=== PATIENT | female | born 1960 | race Caucasian/White ===

== ENCOUNTER → 2018-11-15 | Outpatient (CLI) | payer OTHER | END | disposition home or self-care (01) | LOC: CFH 08:13 | PROVIDERS: ATTEND Specialist | DX: J34.2 Deviated nasal septum (principal); J32.8 Other chronic sinusitis | CPT/HCPCS: 76380 ==

== ENCOUNTER 2019-03-30 15:11 | Emergency (ER) | payer OTHER ==
[~2019-03-30] VITALS: Ht 162.6 cm; Wt 81.0 kg
[2019-03-30 15:20] VITALS: BP 160/72
== END 2019-03-30 17:19 | disposition home or self-care (01) ==
LOC: ED 17:13
DX: M79.661 Pain in right lower leg (principal); I10 Essential (primary) hypertension; E10.9 Type 1 diabetes mellitus without complications
CPT/HCPCS: 99284

== ENCOUNTER 2019-08-31 11:58 | Outpatient (CLI) | payer MEDICARE, OTHER ==
[~2019-08-31 11:58] MED LIST: ATOR40TA78 PO; COLE625T12 PO; EMPA10TA PO; EZET10TA70 PO; FLUT9.9S NAS; LEVO150T5 PO; LISI-167 PO; PARI1CAP3 PO
[2019-08-31] MEDS ORDERED: OMNIPAQUE 350 MG/ML, 100ML BOTTLE ONE (16:10)
== END 2019-08-31 23:59 | disposition home or self-care (01) ==
LOC: CFH 11:58
PROVIDERS: ATTEND Nurse Practitioner Family
DX: M79.89 Other specified soft tissue disorders (principal)
CPT/HCPCS: 70470; 70491; 82565; Q9967

== ENCOUNTER 2019-09-02 10:57 | Emergency (ER) | payer OTHER ==
[~2019-09-02] VITALS: Ht 162.6 cm; Wt 82.9 kg
[2019-09-02 11:00] VITALS: BP 162/71
[2019-09-02] MEDS ORDERED: CIPROFLOXACIN/PMX 400MG/200ML 200 ML IV ONE (11:30)
[2019-09-02] MEDS ORDERED: SODIUM CHLORIDE 0.9% 1,000ML IVBOLUS ONE (11:30)
[2019-09-02] MEDS ORDERED: SODIUM CHLORIDE FLUSH 10ML SYR IVF ONE (11:30)
--- NOTE | 2019-09-02 11:34 | NUR ---
rosario strickland spoke with dr rodriguez
[2019-09-02] MEDS ORDERED: CIPROFLOXACIN 500 MG TABLET ONE (11:48)
[2019-09-02 11:51] LABS: BASOPHILS # (AUTO) 0.05 x10^3/uL (0-0.1); BASOPHILS % (AUTO) 1 % (0-1); EOSINOPHILS # (AUTO) 0.07 x10^3/uL (0-0.4); EOSINOPHILS % (AUTO) 1 % (1-7); LYMPHOCYTES # (AUTO) 0.97 x10^3/uL (1-3.4); LYMPHOCYTES % (AUTO) 20 % (22-44); MD NO; MEAN CORPUSCULAR HEMOGLOBIN 31.4 pg (27.0-34.8); MEAN CORPUSCULAR HGB CONC 33.7 g/dL (32.4-35.8); MEAN CORPUSCULAR VOLUME 93.1 fL (80-100); MEAN PLATELET VOLUME 10.7 fL (7.4-10.4); MONOCYTES # (AUTO) 0.29 x10^3/uL (0.2-0.8); MONOCYTES % (AUTO) 6 % (2-9); NEUTROPHILS # (AUTO) 3.41 x10^3/uL (1.8-6.8); NEUTROPHILS % (AUTO) 71 % (42-75); PLATELET COUNT 236 x10^3/uL (130-400); RED BLOOD COUNT 4.53 x10^6/uL (3.82-5.3); RED CELL DISTRIBUTION WIDTH 13.5 % (9.6-15.2)
[2019-09-02 11:57] LABS: HCT (SEDRATE) 42.2 % (34.6-47.8)
[2019-09-02] MEDS ORDERED: CIPROFLOXACIN 500 MG TABLET PO ONE (12:00)
[2019-09-02 12:02] LABS: ALANINE AMINOTRANSFERASE 43 U/L (12-78); ALBUMIN 3.9 g/dL (3.4-5.0); ANION GAP 9 mmol/L (5-15); C-REACTIVE PROTEIN, QUANT 0.52 mg/dL (0.02-0.49); CALCIUM 8.5 mg/dL (8.5-10.1); CHLORIDE 107 mmol/L (98-107); CREATININE 1.26 mg/dL (0.55-1.02)
[2019-09-02 12:05] LABS: ALKALINE PHOSPHATASE 169 U/L (45-117); BILIRUBIN,TOTAL 0.4 mg/dL (0.2-1.0); TOTAL PROTEIN 7.7 g/dL (6.4-8.2)
== END 2019-09-02 13:13 | disposition home or self-care (01) ==
LOC: ED 12:16
DX: H60.11 Cellulitis of right external ear (principal); I10 Essential (primary) hypertension; E11.9 Type 2 diabetes mellitus without complications; E78.00 Pure hypercholesterolemia, unspecified; Z87.891 Personal history of nicotine dependence; Z86.39 Personal history of other endocrine, nutritional and metabolic disease
CPT/HCPCS: 36415; 80053; 83605; 84145; 85025; 85651; 86140; 87040; 99283

== ENCOUNTER 2019-11-09 06:45 | Emergency (ER) | payer OTHER ==
[~2019-11-09] VITALS: Ht 162.6 cm; Wt 81.5 kg
[2019-11-09 07:07] VITALS: BP 164/83
[2019-11-09] MEDS ORDERED: COLE625T12 PO (07:14)
[2019-11-09] MEDS ORDERED: EMPA10TA PO (07:14)
[2019-11-09] MEDS ORDERED: KETOROLAC 30 MG/1 ML ONE (07:29)
[2019-11-09] MEDS ORDERED: SODIUM CHLORIDE 0.9% 1,000ML IVBOLUS ONE (07:30)
[2019-11-09] MEDS ORDERED: KETOROLAC 30 MG/1 ML IVPush ONE (07:30)
[2019-11-09] MEDS ORDERED: SODIUM CHLORIDE FLUSH 10ML SYR IVF ONE (07:30)
--- NOTE | 2019-11-09 07:34 | NUR ---
THIS IS A 59 YO F W/ C/O VYAS, SINUS PRESSURE AND EAR PAIN THAT STARTED TUESDAY NIGHT. PT REPORTS BEGINING ABX TUESDAY WHICH HELPED WITH THE EAR PAIN AND SINUS PRESSURE BUT HAS A PERSISTENT VYAS. PT REPORT PAIN BEINGS ANTERIORLY AND RADIATES POSTERIORLY ON CROWN OF HEAD. PT DENIES FEVER, COUGH, SOB. PIV STARTED, LABS DRAWN, 1L NS BOLUS STARTED. PT MEDICATED PER EMAR. PT RESTING ON [id number] W/ CALL LIGHT IN REACH. AWAITING RESULTS.
[2019-11-09] MEDS ORDERED: METOCLOPRAMIDE 5 MG/ML, 2ML ONE (07:45)
[2019-11-09 07:51] LABS: BASOPHILS # (AUTO) 0.04 x10^3/uL (0-0.1); BASOPHILS % (AUTO) 1 % (0-1); EOSINOPHILS % (AUTO) 2 % (1-7); LYMPHOCYTES # (AUTO) 1.19 x10^3/uL (1-3.4); LYMPHOCYTES % (AUTO) 22 % (22-44); MD NO; MEAN CORPUSCULAR HEMOGLOBIN 31.6 pg (27.0-34.8); MEAN CORPUSCULAR HGB CONC 33.8 g/dL (32.4-35.8); MEAN CORPUSCULAR VOLUME 93.8 fL (80-100); MEAN PLATELET VOLUME 10.4 fL (7.4-10.4); MONOCYTES # (AUTO) 0.31 x10^3/uL (0.2-0.8); MONOCYTES % (AUTO) 6 % (2-9); NEUTROPHILS # (AUTO) 3.71 x10^3/uL (1.8-6.8); NEUTROPHILS % (AUTO) 69 % (42-75); PLATELET COUNT 223 x10^3/uL (130-400); RED BLOOD COUNT 4.41 x10^6/uL (3.82-5.3); RED CELL DISTRIBUTION WIDTH 13.3 % (9.6-15.2)
[2019-11-09 07:57] LABS: ALBUMIN 3.9 g/dL (3.4-5.0); ANION GAP 7 mmol/L (5-15); CALCIUM 9.5 mg/dL (8.5-10.1); CHLORIDE 106 mmol/L (98-107); CREATININE 1.15 mg/dL (0.55-1.02)
[2019-11-09] MEDS ORDERED: METOCLOPRAMIDE 5 MG/ML, 2ML IVPush ONE (08:00)
--- NOTE | 2019-11-09 08:05 | NUR ---
ALL TESTS RESULTED. PT IS UP FOR RECHECK AT THIS TIME.
== END 2019-11-09 08:57 | disposition home or self-care (01) ==
LOC: ED 07:03
DX: J01.00 Acute maxillary sinusitis, unspecified (principal); Z20.828 Contact with and (suspected) exposure to other viral communicable diseases; I10 Essential (primary) hypertension; E11.9 Type 2 diabetes mellitus without complications; E78.00 Pure hypercholesterolemia, unspecified
CPT/HCPCS: 36415; 80048; 82040; 85025; 96374; 96375; 99284; J1885; J2765; J7030

== ENCOUNTER → 2020-06-04 | Outpatient (CLI) | payer OTHER ==
[~2020-06-04] MED LIST changes: +OMNIPAQUE 350 MG/ML, 150 ML BOTTLE ONE
== END | disposition home or self-care (01) ==
LOC: CFH 14:01
PROVIDERS: ATTEND Nurse Practitioner
DX: R22.1 Localized swelling, mass and lump, neck (principal); R22.2 Localized swelling, mass and lump, trunk
CPT/HCPCS: 70491; 71260; Q9967